=== PATIENT | male | born 1950 | race Caucasian/White ===

== ENCOUNTER 2016-08-14 06:45 | Outpatient (CLI) ==
[2016-08-14 08:14] LABS: BILIRUBIN,URINE Negative (NEGATIVE); KETONES,URINE Negative (NEGATIVE); LEUKOCYTE ESTERASE ,URINE Negative (NEGATIVE); NITRITE,URINE Negative (NEGATIVE); PH,URINE 5.5 (5-9); PROTEIN,URINE Negative (NEGATIVE); URINE, BLOOD Negative (NEGATIVE)
[2016-08-14 08:15] LABS: ADD URINE MICROSCOPIC NO
[2016-08-14 08:34] LABS: ALBUMIN 3.9 g/dL (3.4-5.0); ALBUMIN/GLOBULIN RATIO 1.08; ANION GAP 11.4; BUN/CREATININE RATIO 12.26; CALCIUM 9.3 mg/dL (8.2-10.2); CHOL/HDL RATIO 3.7 (4.5-6.4); CREATININE 1.06 mg/dL (0.60-1.10); POTASSIUM 4.4 mmol/L (3.5-5.1); TOTAL PROTEIN 7.5 g/dL (5.8-8.1); URIC ACID 5.6 mg/dL (2.6-7.2)
[2016-08-14 08:36] LABS: BASOPHILS % (AUTO) 0.4 % (0.0-3.0); EOSINOPHILS # (AUTO) 0.1 K/ul (0.0-0.7); EOSINOPHILS % (AUTO) 2.3 % (0.0-7.0); HEMATOCRIT 46.4 % (42.0-52.0); IMMATURE GRANULOCYTE % (AUTO) 0.4 % (0.0-5.0); LYMPHOCYTES # (AUTO) 1.7 K/uL (0.60-3.4); LYMPHOCYTES % (AUTO) 29.7 (10.0-50.0); MEAN CORPUSCULAR HEMOGLOBIN 28.5 pg (27.0-31.0); MEAN CORPUSCULAR HGB CONC 32.3 (31.8-35.4); MONOCYTES # (AUTO) 0.5 K/uL (0.4-2.0); MONOCYTES % (AUTO) 9.7 (0-10); NEUTROPHILS # (AUTO) 3.2 K/ul (2.0-6.9); NEUTROPHILS % (AUTO) 57.5; PLATELET COUNT 233 10^3/uL (140-440); RED BLOOD COUNT 5.27 10^6/ul (4.70-6.10); WHITE BLOOD COUNT 5.58 K/ul (4.2-10.2)
== END 2016-08-14 06:46 | disposition home or self-care (01) ==
LOC: LAB 06:45
PROVIDERS: ATTEND Internal Medicine
DX: D51.0 Vitamin B12 deficiency anemia due to intrinsic factor deficiency (principal); C61 Malignant neoplasm of prostate
CPT/HCPCS: 36415; 80053; 80061; 81001; 84153; 84439; 84550; 85025

== ENCOUNTER 2016-09-24 06:38 | Outpatient (CLI) | END 2016-09-24 06:39 | disposition home or self-care (01) | LOC: LAB 06:38 | PROVIDERS: ATTEND Internal Medicine | DX: C61 Malignant neoplasm of prostate (principal) | CPT/HCPCS: 36415; 84153 ==

== ENCOUNTER 2017-01-08 06:29 | Outpatient (CLI) | END 2017-01-08 06:30 | disposition home or self-care (01) | LOC: LAB 06:29 | PROVIDERS: ATTEND Urology | DX: C61 Malignant neoplasm of prostate (principal) | CPT/HCPCS: 36415; 84153 ==

== ENCOUNTER 2017-06-25 06:29 | Outpatient (CLI) | payer OTHER | END 2017-06-25 06:30 | disposition home or self-care (01) | LOC: LAB 06:29 | PROVIDERS: ATTEND Urology | DX: Z12.5 Encounter for screening for malignant neoplasm of prostate (principal); C61 Malignant neoplasm of prostate | CPT/HCPCS: 36415 ==

== ENCOUNTER 2017-07-21 06:50 | Outpatient (CLI) | END 2017-07-21 06:51 | disposition home or self-care (01) | LOC: LAB 06:50 | PROVIDERS: ATTEND Urology | DX: C61 Malignant neoplasm of prostate (principal) | CPT/HCPCS: 36415; 82565; 84520 ==

== ENCOUNTER 2017-07-23 07:46 | Outpatient (CLI) | payer OTHER ==
--- NOTE | 2017-07-23 09:02 | CT ---
EXAM: CT abdomen pelvis with and without contrast HISTORY: Prostate cancer COMPARISON: None TECHNIQUE: CT abdomen pelvis performed with and without intravenous contrast. Coronal and sagittal reformatted images obtained. FINDINGS: Bibasilar dependent densities. No free air. No acute abnormalities of the bones. No elaine picious lytic or blastic lesions identified. Degenerate change in the spine. Probable tiny bone isl and in the sacrum. Heart normal in size. Sub centimeter hypodensity in the liver, too small to hafsa acterize. No gallbladder appears normal. Pancreas appears normal. Spleen appears normal. Adrenals appear normal. Kidneys appear. Sub centimeter hypodensity in the right kidney, too small to charac terize. Aorta normal in caliber. Bladder decompressed and poorly evaluated. Small bilateral fat co ntaining inguinal hernias. Prostate not identified may be surgically absent. Stomach appears normal. No dilated loops small bowel. Appendix appears normal. Colonic diverticulosis. No lymphadenopath y or ascites. IMPRESSION: 1. No evidence of metastatic disease in the abdomen or pelvis. 2. Colonic diverticulosis. 3. Mild right basilar ground-glass may represent dependent atelectasis or possibly infectious/inflamm atory.
--- NOTE | 2017-07-23 16:05 | NM ---
EXAM: Whole-body bone scan. HISTORY: Prostate cancer. COMPARISON: None of this type. CT 07/23/2017. PROCEDURE: The patient was injected with 26.2 mCi of 99m technetium HDP intravenously. After an appr opriate interval, whole-body anterior and posterior images were obtained. Additional spot images wer e obtained. FINDINGS: The thoracic and lumbar spine demonstrate age appropriate changes. The ribcage is normal i n appearance. The pelvic skeleton is normal in appearance. The kidneys and bladder demonstrate norm al, physiologic activity. The lower extremeties demonstrate age appropriate activity in the major jayla ints. There is modest increased activity in the hips and more intense activity in the knees which joceline w evidence of prominent degenerative joint disease. There is more modest activity in joints in the a nkles and feet more intense on the right. The upper extremeties demonstrate age appropriate levels of activity in the major joints. There is relatively symmetric increased activity in the AC joints and sternoclavicular joints and asymmetric increased activity in the right shoulder suggesting degenerati ve changes involving the glenohumeral joint. There is asymmetric increased activity in the left first metacarpal carpal articulation. The cervical spine demonstrates age appropriate findings. There is i ncreased activity in the mandible and maxilla compatible with dental disease. The calvarium and face otherwise demonstrate a normal distribution of activity. IMPRESSION: 1. The examination demonstrates typical age related modest degenerative changes in the thoracic and l umbar spine. 2. The rib cage and pelvis are normal in appearance. 3. There are degenerative changes in joints in the uppe and lower extremities the more severe occurri ng in the knees bilaterally and in the right shoulder with lesser findings in the ankles and feet and left shoulder. Additional details provided in the report. 4. There is modest increased activity in the mandible and maxilla which may be associated with dental disease. 5. No overtly metastatic bone lesion is identified at this time.
== END 2017-07-23 07:47 | disposition home or self-care (01) ==
LOC: RAD 07:46
PROVIDERS: ATTEND Urology
DX: C61 Malignant neoplasm of prostate (principal)

== ENCOUNTER 2017-07-26 13:17 | Outpatient (CLI) | END 2017-07-26 13:18 | disposition home or self-care (01) | LOC: LAB 13:17 | PROVIDERS: ATTEND Urology | DX: C61 Malignant neoplasm of prostate (principal) | CPT/HCPCS: 36415; 84153 ==

== ENCOUNTER 2017-08-25 06:31 | Outpatient (CLI) | payer OTHER | END 2017-08-25 06:32 | disposition home or self-care (01) | LOC: LAB 06:31 | PROVIDERS: ATTEND Internal Medicine | DX: D51.0 Vitamin B12 deficiency anemia due to intrinsic factor deficiency (principal); Z12.5 Encounter for screening for malignant neoplasm of prostate; Z79.899 Other long term (current) drug therapy; Z00.00 Encounter for general adult medical examination without abnormal findings | CPT/HCPCS: 36415; 80053; 80061; 84443; 84550; 85025 ==

== ENCOUNTER 2017-12-13 11:28 | Outpatient (CLI) | END 2017-12-13 11:29 | disposition home or self-care (01) | LOC: LAB 11:28 | PROVIDERS: ATTEND Internal Medicine | DX: T14.8XXA Other injury of unspecified body region, initial encounter (principal); W57.XXXA Bitten or stung by nonvenomous insect and other nonvenomous arthropods, initial encounter | CPT/HCPCS: 36415; 86617; 86757; 87798 ==

== ENCOUNTER 2018-01-14 06:25 | Outpatient (CLI) | END 2018-01-14 06:26 | disposition home or self-care (01) | LOC: LAB 06:25 | PROVIDERS: ATTEND Internal Medicine | DX: C61 Malignant neoplasm of prostate (principal); D51.0 Vitamin B12 deficiency anemia due to intrinsic factor deficiency | CPT/HCPCS: 36415; 82607; 84153 ==

== ENCOUNTER 2018-04-12 12:44 | Outpatient (CLI) | END 2018-04-12 12:45 | disposition home or self-care (01) | LOC: LAB 12:44 | PROVIDERS: ATTEND Internal Medicine | DX: C61 Malignant neoplasm of prostate (principal) | CPT/HCPCS: 36415; 84153 ==

== ENCOUNTER 2018-09-02 06:16 | Outpatient (CLI) | payer OTHER | END 2018-09-02 06:17 | disposition home or self-care (01) | LOC: LAB 06:16 | PROVIDERS: ATTEND Internal Medicine | DX: Z00.00 Encounter for general adult medical examination without abnormal findings (principal) | CPT/HCPCS: 36415; 80053; 80061; 81001; 84443; 84550; 85025 ==